=== PATIENT | female | born 1935 | race Caucasian/White ===

== ENCOUNTER 2016-12-19 17:06 | Inpatient (IN) | payer MEDICARE, OTHER ==
[~2016-12-19] VITALS: Ht 152.4 cm; Wt 69.1 kg
[2016-12-19] MEDS ORDERED: ASPIRIN 81 MG CHEWABLE TABLET PO ONE ×2 (17:30→17:45)
[2016-12-19 17:41] LABS: BASOPHILS % (AUTO) 0.9 % (0.0-2.0); EOSINOPHILS % (AUTO) 0.1 % (1.0-6.0); HEMATOCRIT 36.7 % (36-46); HEMOGLOBIN 11.6 g/dL (12.0-16.0); LYMPHOCYTES # (AUTO) 0.6 K/uL (1.0-4.8); LYMPHOCYTES % (AUTO) 6.7 % (22.0-44.0); MEAN CORPUSCULAR HEMOGLOBIN 27.6 pg (26.0-34.0); MEAN CORPUSCULAR HGB CONC 31.5 G/dL (31.0-37.0); MEAN CORPUSCULAR VOLUME 87 fL (80-100); MONOCYTES # (AUTO) 0.2 K/uL (0.1-1.0); MONOCYTES % (AUTO) 2.1 % (2.0-9.0); NEUTROPHILS # (AUTO) 8.4 K/uL (1.8-7.7); NEUTROPHILS % (AUTO) 90.2 % (40.0-70.0); RED CELL DISTRIBUTION WIDTH 16.9 % (11.5-14.5); WHITE BLOOD COUNT (AUTO) 9.3 K/uL (4.5-11.0)
[2016-12-19] MEDS ORDERED: ADV500 IH (17:44)
[2016-12-19] MEDS ORDERED: HYDR-309 PO (17:44)
[2016-12-19] MEDS ORDERED: MONT10TA21 PO (17:44)
[2016-12-19] MEDS ORDERED: INSLAN SQ (17:44)
[2016-12-19] MEDS ORDERED: DOCU250C91 PO (17:44)
[2016-12-19] MEDS ORDERED: PANT40TA25 PO (17:44)
[2016-12-19] MEDS ORDERED: DSS100 PO (17:44)
[2016-12-19] MEDS ORDERED: CLOP75 PO (17:44)
[2016-12-19] MEDS ORDERED: LOSA25TA21 PO (17:44)
[2016-12-19] MEDS ORDERED: ARIP5TAB9 PO (17:44)
[2016-12-19] MEDS ORDERED: ATOR40TA28 PO (17:44)
[2016-12-19] MEDS ORDERED: BIMA12.5OS OU (17:44)
[2016-12-19] MEDS ORDERED: IPRNEB IH (17:44)
[2016-12-19] MEDS ORDERED: BISA10S PR (17:44)
[2016-12-19] MEDS ORDERED: ACET-2247 PO (17:44)
[2016-12-19] MEDS ORDERED: DULO60CA44 PO (17:44)
[2016-12-19] MEDS ORDERED: ONDANSETRON HCL 4 MG/2 ML VIAL IVP ONE (17:45)
[2016-12-19] MEDS ORDERED: MORPHINE SULFATE 4 MG/ML SYRINGE IVP ONE (17:45)
[2016-12-19 17:53] LABS: ALANINE AMINOTRANSFERASE 17 U/L (12-78); ALBUMIN 3.5 g/dL (3.4-5.0); ANION GAP 7 mmol/L (8-16); ASPARTATE AMINOTRANSFERASE 10 U/L (15-37); BILIRUBIN,TOTAL 0.3 mg/dL (0.1-1.0); CALCIUM, TOTAL 8.4 mg/dL (8.8-10.5); CARBON DIOXIDE 31 mmol/L (22-29); CHLORIDE 100 mmol/L (98-107); CREATINE KINASE, TOTAL 20 U/L (26-192); CREATININE 1.02 mg/dL (0.60-1.30); GLOMERULAR FILTR. RATE CALC 52 mL/min (>60); POTASSIUM 3.9 mmol/L (3.5-5.1); SODIUM SERUM 138 mmol/L (136-145); TOTAL PROTEIN, SERUM 7.1 g/dL (6.4-8.2); UREA NITROGEN, BLOOD 8 mg/dL (7-18)
[2016-12-19 18:00] LABS: B-TYPE NATRIURETIC PEPTIDE 86 pg/mL (0-100)
[2016-12-19 18:04] LABS: PLATELET COUNT (AUTO) 96 K/uL (150-450)
[2016-12-19] MEDS ORDERED: IPRATROPIUM BROMIDE 0.5 MG/2.5 ML NEB SOLUTION NEB ONE (18:45)
[2016-12-19] MEDS ORDERED: SODIUM CHLORIDE 0.9% 1,000 ML IV ONE (18:45)
[2016-12-19] MEDS ORDERED: ALBUTEROL SULFATE 2.5 MG/0.5 ML NEB SOLUTION NEB ONE (18:45)
[2016-12-19] MEDS ORDERED: INSULIN REGULAR, HUMAN 100 UNITS/ML SQ ONE (18:45)
[2016-12-19 19:34] LABS: ABG A-A DIFF O2 42.7 mmHg (10-20.0); ABG BASE EXCESS 3.2 mmol/L (-2.0-3.0); ABG HCO3 26.3 mmol/L (22.0-26.0); ABG OXYHEMOGLOBIN 94.2 % (94.0-100.0); ABG PCO2 57 mmHg (35-45); ABG PH 7.326 (7.35-7.450); ALLEN TEST, BLOOD GAS POSITIVE; TEMPERATURE, FAHRENHEIT, BG 98.6 FAHREN (96.0-98.6)
[2016-12-19] MEDS ORDERED: SODIUM CHLORIDE 0.9% 100 ML ONE (19:52)
[2016-12-19] MEDS ORDERED: IOVERSOL 350 MG/ML 100 ML VIAL ONE (19:52)
[2016-12-19] MEDS ORDERED: 0.9% SODIUM CHLORIDE 10 ML SYRINGE IVP PRN (22:00)
[2016-12-19] MEDS ORDERED: ACETAMINOPHEN 325 MG TABLET PO PRN (22:00)
[2016-12-19] MEDS ORDERED: AZITHROMYCIN 500 MG/NS 250 ML IV ONE (22:00)
[2016-12-19] MEDS ORDERED: ONDANSETRON HCL 4 MG/2 ML VIAL IVP PRN (22:00)
[2016-12-19] MEDS ORDERED: CefTRIAXone 1 GM/DEXTROSE 50 ML IV ONE (22:00)
[2016-12-20 01:27] LABS: GLUCOSE COMMENT 1 Received Meds; GLUCOSE,POINT OF CARE 217 MG/DL (70-110)
[2016-12-20] MEDS ORDERED: IPRATROPIUM BROMIDE 0.5 MG/2.5 ML NEB SOLUTION NEB PRN (03:30)
[2016-12-20] MEDS ORDERED: ALBUTEROL SULFATE 2.5 MG/0.5 ML NEB SOLUTION NEB PRN (03:30)
[2016-12-20] MEDS ORDERED: MAGNESIUM HYDROXIDE SUSPENSION 30 ML UDCUP PO PRN (03:30)
[2016-12-20] MEDS ORDERED: OxyCODONE HCL/ACETAMINOPHEN 5-325 MG TABLET PO PRN (03:30)
[2016-12-20] MEDS ORDERED: 0.9% SODIUM CHLORIDE 10 ML SYRINGE IVP PRN (03:30)
[2016-12-20] MEDS ORDERED: ACETAMINOPHEN 325 MG TABLET PO PRN (03:30)
[2016-12-20] MEDS ORDERED: DEXTROSE 50%-WATER 25 GM/50 ML SYRINGE IVP PRN (03:30)
[2016-12-20] MEDS ORDERED: ONDANSETRON HCL 4 MG/2 ML VIAL IVP PRN (03:30)
[2016-12-20] MEDS ORDERED: VANCOMYCIN HCL 1.25 GM in DEXTROSE 5%-WATER 250 ML IV ONE (03:45)
[2016-12-20] MEDS: PIPERACILLIN/TAZO 3.375 GM/D5W 50 ML IV SCH ×3 (06:00→17:09)
[2016-12-20] MEDS ORDERED: ACETAMINOPHEN 325 MG TABLET PO SCH (06:00)
[2016-12-20 07:02] LABS: GLUCOSE COMMENT 1 FASTING; GLUCOSE,POINT OF CARE 248 MG/DL (70-110)
[2016-12-20] MEDS: ALBUTEROL SULFATE 2.5 MG/0.5 ML NEB SOLUTION NEB SCH ×2 (08:00→17:05)
[2016-12-20 08:49] VITALS: BP 106/49
[2016-12-20] MEDS ORDERED: DOCUSATE SODIUM 100 MG CAPSULE PO SCH (09:00)
[2016-12-20] MEDS: LOSARTAN POTASSIUM 25 MG TABLET PO SCH (09:00)
[2016-12-20] MEDS: BISACODYL 10 MG RECTAL RECTAL SUPPOSITORY PR SCH (09:00)
[2016-12-20] MEDS: ARIPiprazole 5 MG TABLET PO SCH (10:04)
[2016-12-20] MEDS: DULoxetine HCL 60 MG CAPSULE PO SCH (10:04)
[2016-12-20] MEDS: PANTOPRAZOLE SODIUM 40 MG/VIAL IVP SCH (10:04)
[2016-12-20] MEDS: DOCUSATE SODIUM 100 MG CAPSULE PO SCH (10:04)
[2016-12-20] MEDS: CLOPIDOGREL BISULFATE 75 MG TABLET PO SCH (10:04)
[2016-12-20] MEDS: ATORVASTATIN CALCIUM 40 MG TABLET PO SCH (10:04)
[2016-12-20] MEDS: OxyCODONE HCL/ACETAMINOPHEN 5-325 MG TABLET PO PRN (10:15)
[2016-12-20] MEDS: INSULIN DETEMIR 100 UNITS/ML SQ SCH (10:19)
[2016-12-20 12:03] VITALS: BP 95/45
[2016-12-20] MEDS: INSULIN ASPART 100 UNITS/ML SQ PRN ×2 (12:09→17:40)
[2016-12-20] MEDS ORDERED: SODIUM CHLORIDE 0.9% 100 ML ONE (12:16)
[2016-12-20 13:42] LABS: GLUCOSE COMMENT 1 Received Meds; GLUCOSE,POINT OF CARE 226 MG/DL (70-110)
[2016-12-20] MEDS ORDERED: 0.9% SODIUM CHLORIDE 5 ML NEB SOLUTION NEB ONE (15:17)
[2016-12-20] MEDS: MethylPREDNISolone SOD SUCC 40 MG/ML VIAL IVP SCH (17:16)
[2016-12-20 17:29] VITALS: BP 104/74
[2016-12-20 19:53] VITALS: BP 100/50
[2016-12-20 20:47] LABS: GLUCOSE COMMENT 1 Received Meds; GLUCOSE,POINT OF CARE 144 MG/DL (70-110)
[2016-12-20] MEDS: BIMATOPROST 0.01% 2.5 ML OPHTHALMIC SOLUTION OU SCH (21:13)
[2016-12-20] MEDS: MONTELUKAST SODIUM 10 MG TABLET PO SCH (21:13)
[2016-12-20 23:55] VITALS: BP 104/50
[2016-12-21] VITALS (7 sets, daily range): BP systolic 100–139; BP diastolic 50–64
[2016-12-21] MEDS: PIPERACILLIN/TAZO 3.375 GM/D5W 50 ML IV SCH ×2 (02:34→06:26)
[2016-12-21] MEDS: MethylPREDNISolone SOD SUCC 40 MG/ML VIAL IVP SCH ×3 (02:34→21:31)
[2016-12-21] MEDS: OxyCODONE HCL/ACETAMINOPHEN 5-325 MG TABLET PO PRN ×2 (06:25→14:54)
[2016-12-21 06:37] LABS: EOSINOPHILS % (AUTO) 0.1 % (1.0-6.0); HEMATOCRIT 32.1 % (36-46); HEMOGLOBIN 10.2 g/dL (12.0-16.0); LYMPHOCYTES # (AUTO) 0.6 K/uL (1.0-4.8); LYMPHOCYTES % (AUTO) 5.1 % (22.0-44.0); MEAN CORPUSCULAR HEMOGLOBIN 28.1 pg (26.0-34.0); MEAN CORPUSCULAR HGB CONC 31.7 G/dL (31.0-37.0); MEAN CORPUSCULAR VOLUME 89 fL (80-100); MONOCYTES # (AUTO) 0.2 K/uL (0.1-1.0); MONOCYTES % (AUTO) 1.7 % (2.0-9.0); NEUTROPHILS # (AUTO) 11.1 K/uL (1.8-7.7); PLATELET COUNT (AUTO) 90 K/uL (150-450); RED BLOOD CELL COUNT(AUTO) 3.63 MIL/uL (4.00-5.20); RED CELL DISTRIBUTION WIDTH 16.9 % (11.5-14.5); WHITE BLOOD COUNT (AUTO) 11.9 K/uL (4.5-11.0)
[2016-12-21 07:08] LABS: CALCIUM, TOTAL 7.6 mg/dL (8.8-10.5); CREATININE 1.27 mg/dL (0.60-1.30); POTASSIUM 4.2 mmol/L (3.5-5.1)
[2016-12-21 07:11] LABS: NEUTROPHILS % (AUTO) 93.1 % (40.0-70.0)
[2016-12-21] MEDS ORDERED: 0.9% SODIUM CHLORIDE 5 ML NEB SOLUTION NEB ONE ×2 (07:47→15:41)
[2016-12-21] MEDS: ALBUTEROL SULFATE 2.5 MG/0.5 ML NEB SOLUTION NEB SCH ×3 (07:47→15:41)
[2016-12-21] MEDS ORDERED: VANCOMYCIN HCL 1.25 GM in DEXTROSE 5%-WATER 250 ML IV SCH (08:00)
[2016-12-21] MEDS ORDERED: VANCOMYCIN HCL 1 GM/D5% WATER 200 ML IV SCH (08:00)
[2016-12-21] MEDS: ATORVASTATIN CALCIUM 40 MG TABLET PO SCH (08:52)
[2016-12-21] MEDS: PANTOPRAZOLE SODIUM 40 MG/VIAL IVP SCH (08:53)
[2016-12-21] MEDS: LOSARTAN POTASSIUM 25 MG TABLET PO SCH (08:53)
[2016-12-21] MEDS: CLOPIDOGREL BISULFATE 75 MG TABLET PO SCH (08:53)
[2016-12-21] MEDS: BISACODYL 10 MG RECTAL RECTAL SUPPOSITORY PR SCH (08:54)
[2016-12-21] MEDS: DOCUSATE SODIUM 100 MG CAPSULE PO SCH (08:54)
[2016-12-21] MEDS: DULoxetine HCL 60 MG CAPSULE PO SCH (08:55)
[2016-12-21] MEDS: ARIPiprazole 5 MG TABLET PO SCH (08:55)
[2016-12-21] MEDS: INSULIN DETEMIR 100 UNITS/ML SQ SCH (09:05)
[2016-12-21] MEDS: INSULIN ASPART 100 UNITS/ML SQ PRN ×3 (12:39→21:49)
[2016-12-21 12:49] LABS: GLUCOSE,POINT OF CARE 126 MG/DL (70-110)
[2016-12-21 12:49] LABS: GLUCOSE,POINT OF CARE 162 MG/DL (70-110)
[2016-12-21 12:50] LABS: GLUCOSE COMMENT 1 Received Meds; GLUCOSE,POINT OF CARE 388 MG/DL (70-110)
[2016-12-21] MEDS ORDERED: SODIUM CHLORIDE 0.9% 250 ML IV ONE (13:41)
[2016-12-21] MEDS: CHOLECALCIFEROL (VIT D3) 1,000 UNITS TABLET PO SCH (14:54)
[2016-12-21] MEDS: PIPERACILLIN SODIUM/TAZOBACTAM 2.25 GM in DEXTROSE 5%-WATER 50 ML IV SCH ×3 (14:55→23:47)
[2016-12-21] MEDS: BIMATOPROST 0.01% 2.5 ML OPHTHALMIC SOLUTION OU SCH (21:00)
[2016-12-21] MEDS: MONTELUKAST SODIUM 10 MG TABLET PO SCH (21:31)
[2016-12-22] MEDS ORDERED: 0.9% SODIUM CHLORIDE 5 ML NEB SOLUTION NEB ONE ×2 (00:47→07:01)
[2016-12-22] MEDS: ALBUTEROL SULFATE 2.5 MG/0.5 ML NEB SOLUTION NEB SCH ×2 (00:48→07:03)
[2016-12-22 04:15] VITALS: BP 137/82
[2016-12-22] MEDS: PIPERACILLIN SODIUM/TAZOBACTAM 2.25 GM in DEXTROSE 5%-WATER 50 ML IV SCH (05:32)
[2016-12-22] MEDS: INSULIN ASPART 100 UNITS/ML SQ PRN ×2 (06:28→12:22)
[2016-12-22 07:17] LABS: GLUCOSE COMMENT 1 Received Meds; GLUCOSE,POINT OF CARE 304 MG/DL (70-110)
[2016-12-22 07:17] LABS: GLUCOSE COMMENT 1 Received Meds; GLUCOSE,POINT OF CARE 395 MG/DL (70-110)
[2016-12-22 07:17] LABS: GLUCOSE COMMENT 1 Received Meds; GLUCOSE,POINT OF CARE 348 MG/DL (70-110)
[2016-12-22 07:21] LABS: CALCIUM, TOTAL 7.9 mg/dL (8.8-10.5); CREATININE 1.22 mg/dL (0.60-1.30); POTASSIUM 4.5 mmol/L (3.5-5.1)
[2016-12-22 07:31] VITALS: BP 129/57
[2016-12-22] MEDS ORDERED: VANCOMYCIN HCL 500 MG in DEXTROSE 5%-WATER 100 ML IV SCH (08:00)
[2016-12-22] MEDS: BISACODYL 10 MG RECTAL RECTAL SUPPOSITORY PR SCH (08:08)
[2016-12-22] MEDS: DULoxetine HCL 60 MG CAPSULE PO SCH (08:08)
[2016-12-22] MEDS: PANTOPRAZOLE SODIUM 40 MG/VIAL IVP SCH (08:08)
[2016-12-22] MEDS: ATORVASTATIN CALCIUM 40 MG TABLET PO SCH (08:08)
[2016-12-22] MEDS: MethylPREDNISolone SOD SUCC 40 MG/ML VIAL IVP SCH (08:08)
[2016-12-22] MEDS: CHOLECALCIFEROL (VIT D3) 1,000 UNITS TABLET PO SCH (08:09)
[2016-12-22] MEDS: LOSARTAN POTASSIUM 25 MG TABLET PO SCH (08:09)
[2016-12-22] MEDS: DOCUSATE SODIUM 100 MG CAPSULE PO SCH (08:09)
[2016-12-22] MEDS: CLOPIDOGREL BISULFATE 75 MG TABLET PO SCH (08:09)
[2016-12-22] MEDS: ARIPiprazole 5 MG TABLET PO SCH (08:09)
[2016-12-22] MEDS: OxyCODONE HCL/ACETAMINOPHEN 5-325 MG TABLET PO PRN (08:11)
[2016-12-22] MEDS: INSULIN DETEMIR 100 UNITS/ML SQ SCH (08:15)
[2016-12-22] MEDS ORDERED: PredniSONE 10 MG TABLET PO SCH (11:45)
[2016-12-22 11:46] VITALS: BP 126/67
[2016-12-22] MEDS ORDERED: LORazepam 1 MG TABLET PO ONE (14:15)
[2016-12-22 16:52] LABS: GLUCOSE COMMENT 1 Received Meds; GLUCOSE,POINT OF CARE 384 MG/DL (70-110)
[2016-12-23] MEDS ORDERED: LEVOFLOXACIN 500 MG TABLET PO SCH (09:00)
[2016-12-23] MEDS ORDERED: PANTOPRAZOLE SODIUM 40 MG DR TABLET PO SCH (09:00)
== END 2016-12-22 14:25 | disposition home or self-care (01) | DRG 189 ==
LOC: EMS 17:08 → 5N 12-20 05:50
PROVIDERS: ADMIT Internal Medicine; ATTEND Internal Medicine
PROC: 5A09357 Assistance with Respiratory Ventilation, Less than 24 Consecutive Hours, Continuous Positive Airway Pressure (ICD-10-PCS; principal; 2016-12-20)
DX: J96.02 Acute respiratory failure with hypercapnia (principal); J18.9 Pneumonia, unspecified organism; J44.0 Chronic obstructive pulmonary disease with (acute) lower respiratory infection; J44.1 Chronic obstructive pulmonary disease with (acute) exacerbation; E87.2 Acidosis; S22.009A Unspecified fracture of unspecified thoracic vertebra, initial encounter for closed fracture; J96.01 Acute respiratory failure with hypoxia; E11.65 Type 2 diabetes mellitus with hyperglycemia; J44.9 Chronic obstructive pulmonary disease, unspecified; I10 Essential (primary) hypertension; I25.10 Atherosclerotic heart disease of native coronary artery without angina pectoris; F32.9 Major depressive disorder, single episode, unspecified; E78.00 Pure hypercholesterolemia, unspecified; E78.5 Hyperlipidemia, unspecified; F03.90 Unspecified dementia, unspecified severity, without behavioral disturbance, psychotic disturbance, mood disturbance, and anxiety; K21.9 Gastro-esophageal reflux disease without esophagitis; Z79.4 Long term (current) use of insulin; Z83.3 Family history of diabetes mellitus; Z79.2 Long term (current) use of antibiotics; X58.XXXA Exposure to other specified factors, initial encounter; Z79.891 Long term (current) use of opiate analgesic; Z79.51 Long term (current) use of inhaled steroids; Z79.899 Other long term (current) drug therapy; Z90.49 Acquired absence of other specified parts of digestive tract; Z79.01 Long term (current) use of anticoagulants; Y93.89 Activity, other specified; Y92.89 Other specified places as the place of occurrence of the external cause; Y99.8 Other external cause status
CPT/HCPCS: 70450; 71270; 82805; 82962; 84145; 85379; 87040; 87081; 93005; 93306; 94640; 94660; 94667; 94668; 96361; 96365; 96366; 96367; 96368; 96372; 96375; 99291; C9113; J0456; J0696; J1815; J2270; J2405; J2543; J2920; J3370; J7030; J7050; J7060